=== PATIENT | male | born 1940 | race Caucasian/White ===

== ENCOUNTER 2018-03-12 11:11 | Outpatient (CLI) | payer OTHER ==
[~2018-03-12 11:11] MED LIST: ALPRAZOLAM XR0.5 MG PO; ASA81 MG PO; CAPOTEN50 MG PO; CAPTOPRIL50 MG PO; CARAFATE1 GM; CLONAZEPAM1 MG PO; COLACE100 MG PO; ECOTRIN81 MG; FERROUS GLUCON325 MG PO; ISOSORBIDE DINI30 MG PO; PERCOCET 5-3251 EACH PO; PLAVIX75 MG PO; SEROQUEL300 MG PO; THEO-24100 MG PO; TRAZODONE HCL100 MG PO; ZANTAC300 MG PO
== END 2018-03-12 17:00 | disposition home or self-care (01) ==
LOC: MRI 11:11
DX: G95.20 Unspecified cord compression (principal); Z98.1 Arthrodesis status
CPT/HCPCS: 72141

== ENCOUNTER 2018-03-30 08:46 | Outpatient (CLI) | payer OTHER | END 2018-03-30 08:53 | disposition home or self-care (01) | LOC: TOM 08:46 | DX: J38.1 Polyp of vocal cord and larynx (principal) | CPT/HCPCS: 70492; Q9965 ==

== ENCOUNTER 2018-04-06 08:48 | Outpatient (CLI) | payer OTHER | END 2018-04-06 09:02 | disposition home or self-care (01) | LOC: RAD 08:48 → MRI 09:15 | DX: J38.1 Polyp of vocal cord and larynx (principal) | CPT/HCPCS: 70553; 71046; A9579 ==

== ENCOUNTER 2018-04-28 09:33 | Outpatient (CLI) | payer OTHER | END 2018-04-28 10:09 | disposition home or self-care (01) | LOC: MRI 09:33 | DX: D44.3 Neoplasm of uncertain behavior of pituitary gland (principal) | CPT/HCPCS: 70552; A9579; 70551 ==